=== PATIENT | female | born 1975 | race Caucasian/White ===

== ENCOUNTER 2019-12-06 09:50 | Emergency (ER) | payer OTHER ==
[~2019-12-06] VITALS: Ht 152.4 cm; Wt 56.8 kg
[2019-12-06] MEDS ORDERED: ONDANSETRON PF 4 MG/2 ML VIAL. IVP ONE (10:15)
[2019-12-06] MEDS ORDERED: IV NORMAL SALINE 1000ML BAG 1,000 ML IV ONE (10:15)
[2019-12-06] MEDS ORDERED: KETOROLAC 15 MG/ML VIAL. IVP ONE (10:15)
--- NOTE | 2019-12-06 10:16 | PHYS DOC ---
Past Medical History Past Medical History: UTI Drug Use: None General Adult EDM: Chief Complaint: FLANK PAIN HPI: HPI: Patient is a 44 year old female who presents with a chief complaint of left flank pain. Patient says she is had dysuria and UTI symptoms for last 4 to 6 weeks which got better but then returned over the last couple days. Over last couple days she has left flank pain that feels swollen and painful. Pain, radiates to the abdomen. Patient has had nausea but no vomiting. Patient s tates she had a temperature 100.5. Patient never sought treatment a month ago for the UTI but the symptoms got better. Pain is worse with urination. Patient denies any cough or respiratory complaints Review of Systems: Review of Systems: Constitutional: Complains of fever to 100.5 Eyes: Denies change in visual acuity. [] HENT: Denies nasal congestion or sore throat. [] Respiratory: Denies cough or shortness of breath. [] Cardiovascular: Denies chest pain or edema. [] GI: Complains of left flank pain, nausea no diarrhea : Complains of dysuria Musculoskeletal: Complains of left flank pain Integument: Denies rash. [] Neurologic: Denies headache, focal weakness or sensory changes. [] Endocrine: Denies polyuria or polydipsia. [] Lymphatic: Denies swollen glands. [] Psychiatric: Denies depression or anxiety. [] Heart Score: Risk Factors: Risk Factors: DM, Current or recent (<one month) smoker, HTN, HLP, family history of CAD, obesity. Risk Scores: Score 0 - 3: 2.5% MACE over next 6 weeks - Discharge Home Score 4 - 6: 20.3% MACE over next 6 weeks - Admit for Clinical Observation Score 7 - 10: 72.7% MACE over next 6 weeks - Early Invasive Strategies Current Medications: Current Medications Medications (Trade) Dose Ordered Sig/Anneliese Start Time Stop Time Status Last Admin Dose Admin Ketorolac Tromethamine (Toradol 15mg Vial) 15 mg 1X ONCE 12/06/19 10:15 12/06/19 10:16 UNV Ondansetron HCl (Zofran) 4 mg 1X ONCE 12/06/19 10:15 12/06/19 10:16 UNV Sodium Chloride 1,000 ml @ 1,000 mls/hr 1X ONCE 12/06/19 10:15 12/06/19 11:14 UNV Allergies: Allergies: Allergies Coded Allergies Type Severity Reaction Last Updated Verified No Known Drug Allergies 12/06/19 No Physical Exam: PE: Constitutional: Well developed, well nourished, no acute distress, non-toxic appearance. [] HENT: Normocephalic, atraumatic, bilateral external ears normal, no trismus, nose normal. [] Eyes: PERRLA, EOMI, conjunctiva normal, no discharge. [] Neck: Normal range of motion, no tenderness, supple, no stridor. [] Cardiovascular:Heart rate regular rhythm, Lungs & Thorax: No respiratory distress Abdomen: soft, no tenderness, no masses, no pulsatile masses. [] Skin: Warm, dry, no erythema, no rash. [] Back: Left CVA tenderness Extremities: No tenderness, no cyanosis, no clubbing, ROM intact, no edema. [] Neurologic: Alert and oriented X 3, normal motor function, normal sensory function, no focal deficits noted. [] Psychologic: Affect normal, judgement normal, mood normal. [] Current Patient Data: Labs: Laboratory Tests Test 12/06/19 10:07 12/06/19 10:20 12/06/19 10:40 Bedside Urine HCG, Qualitative Hcg negative White Blood Count 13.4 x10^3/uL Red Blood Count 3.85 x10^6/uL Hemoglobin 12.3 g/dL Hematocrit 36.8 % Mean Corpuscular Volume 95 fL Mean Corpuscular Hemoglobin 32 pg Mean Corpuscular Hemoglobin Concent 34 g/dL Red Cell Distribution Width 15.4 % Platelet Count 262 x10^3/uL Neutrophils (%) (Auto) 80 % Lymphocytes (%) (Auto) 8 % Monocytes (%) (Auto) 12 % Eosinophils (%) (Auto) 0 % Basophils (%) (Auto) 0 % Neutrophils # (Auto) 10.6 x10^3/uL Lymphocytes # (Auto) 1.1 x10^3/uL Monocytes # (Auto) 1.6 x10^3/uL Eosinophils # (Auto) 0.0 x10^3/uL Basophils # (Auto) 0.1 x10^3/uL Urine Collection Type Unknown Urine Color Yellow Urine Clarity Clear Urine pH 7.0 Urine Specific Spurger <=1.005 Urine Protein Negative mg/dL Urine Glucose (UA) Negative mg/dL Urine Ketones (Stick) Negative mg/dL Urine Blood Trace Urine Nitrite Negative Urine Bilirubin Negative Urine Urobilinogen Dipstick 2.0 mg/dL Urine Leukocyte Esterase Negative Urine RBC 3-5 /HPF Urine WBC 1-4 /HPF Urine Squamous Epithelial Cells Occ /LPF Urine Bacteria 0 /HPF Sodium Level 138 mmol/L Potassium Level 3.1 mmol/L Chloride Level 101 mmol/L Carbon Dioxide Level 25 mmol/L Anion Gap 12 Blood Urea Nitrogen 6 mg/dL Creatinine 1.0 mg/dL Estimated GFR (Cockcroft-Gault) 60.2 BUN/Creatinine Ratio 6 Glucose Level 107 mg/dL Calcium Level 8.4 mg/dL Total Bilirubin 0.4 mg/dL Aspartate Amino Transf (AST/SGOT) 14 U/L Alanine Aminotransferase (ALT/SGPT) 20 U/L Alkaline Phosphatase 106 U/L Total Protein 6.6 g/dL Albumin 2.8 g/dL Albumin/Globulin Ratio 0.7 Lipase 67 U/L Current Medications Medications (Trade) Dose Ordered Sig/Anneliese Route PRN Reason Start Time Stop Time Status Last Admin Dose Admin Ketorolac Tromethamine (Toradol 15mg Vial) 15 mg 1X ONCE IVP 12/06/19 10:15 12/06/19 10:16 DC 12/06/19 10:30 Ondansetron HCl (Zofran) 4 mg 1X ONCE IVP 12/06/19 10:15 12/06/19 10:16 DC 12/06/19 10:30 Sodium Chloride 1,000 ml @ 1,000 mls/hr 1X ONCE IV 12/06/19 10:15 12/06/19 11:14 DC 12/06/19 10:31 Potassium Chloride (Klor-Con) 40 meq 1X ONCE PO 12/06/19 11:45 12/06/19 11:46 DC 12/06/19 11:56 Laboratory Tests Test 12/06/19 10:07 POC Urine HCG, Qualitative Hcg negative (Negative) Vital Signs: Vital Signs Date Time Temp Pulse Resp B/P (MAP) Pulse Ox O2 Delivery O2 Flow Rate FiO2 12/06/19 11:56 86 131/88 (102) 100 Room Air 12/06/19 11:26 74 131/80 (97) 100 Room Air 12/06/19 10:56 76 137/82 (100) 100 Room Air 12/06/19 10:28 79 143/76 (98) 100 Room Air 12/06/19 10:08 81 156/85 (108) 99 Room Air 12/06/19 10:08 99.0 73 16 156/85 (108) 99 Room Air 99.0 EKG: EKG: [] Radiology/Procedures: Radiology/Procedures: [][facility] [address] [place] [address] IMAGING REPORT Signed PATIENT: BETHANY ALANIZACCOUNT: [id number] : 1975 LOCATION: ER AGE: 44 SEX: F EXAM STATUS: REG ER ORD. PHYSICIAN: DIOGO VICTOR MD REASON: left flank pain PROCEDURE: CT ABDOMEN PELVIS WO CONTRAST CT ABDOMEN PELVIS WO CONTRAST INDICATION: left flank pain EXAM: Noncontrast CT of the abdomen and pelvis. Coronal and sagittal reformatted images were performed. PQRS compliance statement: One or more of the following individualized dose reduction techniques were utilized for this examination: 1. Automated exposure control 2. Adjustment of the mA and/or kV according to patient size 3. Use of iterative reconstruction technique COMPARISON: None FINDINGS: No free air, free fluid, or fluid collection. Lower chest: The visualized lower lungs are aerated. Bibasilar dependent atelectasis. No pleural or pericardial effusion. ABDOMEN: Liver: The noncontrast liver is homogeneous in attenuation. Gallbladder and biliary: Cholelithiasis. Normal caliber bile ducts. Spleen: Normal spleen. Pancreas: The noncontrast pancreas is homogeneous in attenuation without peripancreatic inflammatory changes. Adrenal glands: Normal adrenal glands. Kidneys and ureters: No hydronephrosis. Punctate bilateral nonobstructive renal calculi measuring 1 to 3 mm. GI tract: Normal stomach. Normal caliber small bowel and colon. Normal appendix. Vascular structures: Normal caliber abdominal aorta. Lymph nodes: No lymphadenopathy in the abdomen or pelvis. PELVIS: Genitourinary system: Urinary bladder is decompressed. Uterus is present. SKELETAL STRUCTURES AND SOFT TISSUES: No fracture or destructive lesion in the visualized skeleton. IMPRESSION: 1. Small bilateral nonobstructive renal calculi. No hydronephrosis. 2. Cholelithiasis. Electronically signed by: Barber Blair MD (12/06/2019 10:44 AM) [id number] DICTATED and SIGNED BY: BARBER BLAIR MD DATE: 12/06/19 1044 Course & Med Decision Making: Course & Med Decision Making Pertinent Labs and Imaging studies reviewed. (See chart for details) [] Patient reassessed at 1148 and sleeping comfortably. Patient no distress. Discussed with patient the results that she has multiple kidney stones and gallstones are most likely she is passing kidney stones but there is no ureteral stone now and no evidence of a UTI. Patient's hypokalemia will be treated. Patient stable for discharge and outpatient follow-up. Return precautions given. Dragon Disclaimer: Jennie Disclaimer: This electronic medical record was generated, in whole or in part, using a voice recognition dictation system. Departure Departure Impression: Primary Impression: Left flank pain Additional Impressions: Kidney stones Gallstones Disposition: 01 HOME, SELF-CARE Condition: STABLE Referrals: [facility] 2-3 DAYS NO PCP (PCP) Patient Instructions: Kidney Stones Additional Instructions: EMERGENCY DEPARTMENT GENERAL DISCHARGE INSTRUCTIONS THANK YOU for coming to [facility] Emergency Department (ED) today and trusting us with your care. We trust that you had a positive experience in our Emergency Department. If you wish to speak to the department Management you can contact the land department head at . YOUR FOLLOW UP INSTRUCTIONS ARE FOLLOWS: Do you have a private doctor? If you do not have a private doctor, please ask for a resource list of physicians or clinics that may be able to assist you with follow up care. The Emergency Physician has interpreted your x-rays. The X-ray specialist will also review them. If there is a change in the findings you will be notified in 48 hours when at all possible. A lab test or lab culture may have been done, your results will be reviewed and you will be notified if you need a change in treatment. ADDITIONAL INSTRUCTIONS AND INFORMATION Your care today has been supervised by a physician who is specially trained in emergency care. Many problems require more than one evaluation for a complete diagnosis and treatment. We recommend that you schedule your follow up appointment as recommended to ensure complete treatment of your illness or injury. If you are unable to obtain follow up care and continue to have a problem, or if your condition worsens we recommend that you return to the ED. We are not able to safely determine your condition over the phone nor are we able to give sound medical advice over the phone. For these safety reasons, if you call for medical advice we will ask you to come to the ED for further evaluation If you have any questions regarding these discharge instructions please call the ED at . SAFETY INFORMATION In the interest of safety, wellness, and injury prevention; we encourage you to wear your seatbelt, if you smoke; quit smoking, and we encourage your family to use protective helmet for bicycling and other sporting events that present an increased risk for head injury. IF YOUR SYMPTOMS WORSEN OR NEW SYMPTOMS DEVELOP, OR YOU HAVE CONCERNS ABOUT YOUR CONDITION; OR IF YOUR CONDITION WORSENS WHILE YOU ARE WAITING FOR YOUR FOLLOW UP APPOINTMENT; EITHER CONTACT YOUR PRIMARY CARE DOCTOR, THE PHYSICIAN WHOSE NAME AND NUMBER YOU WERE GIVEN, OR RETURN TO THE ED IMMEDIATELY. Scripts Ondansetron (ONDANSETRON ODT) 4 Mg Tab.rapdis 1 TAB PO PRN Q6-8HRS PRN for NAUSEA, #15 TAB Prov: DIOGO VICTOR MD 12/06/19 Naproxen (NAPROSYN) 500 Mg Tablet 1 TAB PO BID for pain, #20 TAB 0 Refills Prov: DIOGO VICTOR MD 12/06/19 Justicifation of Admission Dx: Justifications for Admission: Justification of Admission Dx: N/A DIOGO VICTOR MD Dec 06, 2019 10:16
[2019-12-06 10:42] LABS: BASO # 0.1 x10^3/uL (0.0-0.2); BASO % 0 % (0-3); EOS % 0 % (0-3); HEMATOCRIT 36.8 % (36.0-47.0); HEMOGLOBIN 12.3 g/dL (12.0-15.5); LYMPH # 1.1 x10^3/uL (1.0-4.8); LYMPH % 8 % (24-48); MEAN CORPUSCULAR HEMOGLOBIN 32 pg (25-35); MEAN CORPUSCULAR HGB CONC 34 g/dL (31-37); MEAN CORPUSCULAR VOLUME 95 fL (79-100); MONO # 1.6 x10^3/uL (0.0-1.1); MONO % 12 % (0-9); NEUT # 10.6 x10^3/uL (1.8-7.7); NEUT % 80 % (31-73); PLATELET COUNT 262 x10^3/uL (140-400); RED BLOOD COUNT 3.85 x10^6/uL (3.50-5.40); RED CELL DISTRIBUTION WIDTH 15.4 % (11.5-14.5); WHITE BLOOD COUNT 13.4 x10^3/uL (4.0-11.0)
[2019-12-06 10:44] LABS: BILIRUBIN,URINE NEGATIVE (NEG); CLARITY,URINE CLEAR; COLOR,URINE YELLOW; NITRITE,URINE NEGATIVE (NEG); PROTEIN,URINE NEGATIVE (NEG-TRACE)
--- NOTE | 2019-12-06 10:47 | RAD ---
CT ABDOMEN PELVIS WO CONTRAST INDICATION: left flank pain EXAM: Noncontrast CT of the abdomen and pelvis. Coronal and sagittal reformatted images were performed. PQRS compliance statement: One or more of the following individualized dose reduction techniques were utilized for this examination: 1. Automated exposure control 2. Adjustment of the mA and/or kV according to patient size 3. Use of iterative reconstruction technique COMPARISON: None FINDINGS: No free air, free fluid, or fluid collection. Lower chest: The visualized lower lungs are aerated. Bibasilar dependent atelectasis. No pleural or pericardial effusion. ABDOMEN: Liver: The noncontrast liver is homogeneous in attenuation. Gallbladder and biliary: Cholelithiasis. Normal caliber bile ducts. Spleen: Normal spleen. Pancreas: The noncontrast pancreas is homogeneous in attenuation without peripancreatic inflammatory changes. Adrenal glands: Normal adrenal glands. Kidneys and ureters: No hydronephrosis. Punctate bilateral nonobstructive renal calculi measuring 1 to 3 mm. GI tract: Normal stomach. Normal caliber small bowel and colon. Normal appendix. Vascular structures: Normal caliber abdominal aorta. Lymph nodes: No lymphadenopathy in the abdomen or pelvis. PELVIS: Genitourinary system: Urinary bladder is decompressed. Uterus is present. SKELETAL STRUCTURES AND SOFT TISSUES: No fracture or destructive lesion in the visualized skeleton. IMPRESSION: 1. Small bilateral nonobstructive renal calculi. No hydronephrosis. 2. Cholelithiasis. Electronically signed by: Bradley Felton MD (12/06/2019 10:44 AM) [id number]
[2019-12-06 10:51] LABS: BACTERIA,URINE 0 /HPF (0-FEW)
[2019-12-06 10:52] LABS: SQUAMOUS EPITHELIAL CELL,UR OCC /LPF
[2019-12-06 10:55] LABS: CALCIUM 8.4 mg/dL (8.5-10.1); GFR 60.2; POTASSIUM 3.1 mmol/L (3.5-5.1)
[2019-12-06 11:01] LABS: ALBUMIN 2.8 g/dL (3.4-5.0); ALBUMIN/GLOBULIN RATIO 0.7 (1.0-1.7); TOTAL BILIRUBIN 0.4 mg/dL (0.2-1.0); TOTAL PROTEIN 6.6 g/dL (6.4-8.2)
[2019-12-06] MEDS ORDERED: POTASSIUM CHLORIDE 10 MEQ TABLET.ER. PO ONE (11:45)
[2019-12-06] MEDS ORDERED: NAPR-683 PO (11:54)
[2019-12-06] MEDS ORDERED: ONDA4TAB12 PO (11:54)
[2019-12-06 11:56] VITALS: BP 131/88
== END 2019-12-06 12:40 | disposition home or self-care (01) ==
LOC: ER 09:50
DX: N20.0 Calculus of kidney (principal); K80.20 Calculus of gallbladder without cholecystitis without obstruction; R10.9 Unspecified abdominal pain; R11.0 Nausea; R50.9 Fever, unspecified
CPT/HCPCS: 36415; 74176; 80053; 81001; 81025; 83690; 85025; 96374; 96375; 99285; J1885; J2405; J7030